=== PATIENT | female | born 1960 | race Caucasian/White ===

== ENCOUNTER → 2017-08-09 | Outpatient (CLI) | payer MEDICARE ==
--- NOTE | 2017-08-09 12:53 | US ---
EXAMINATION TYPE: US liver DATE OF EXAM: 08/09/2017 COMPARISON: NONE CLINICAL HISTORY: R94.5 increased liver function. Fatigue EXAM MEASUREMENTS: Liver Length: 14.1 cm Gallbladder Wall: 0.2 cm CBD: 0.2 cm Right Kidney: 10.5 x 4.5 x 4.4 cm Pancreas: wnl, partially obstructed by bowel gas. Liver: wnl, partially obstructed by bowel gas. Gallbladder: wnl Evidence for sonographic Nance's sign: no CBD: wnl Right Kidney: wnl IMPRESSION: 1. Although lateral hepatic echotexture is partially obscured by bowel gas visualized portions [place] in normal echotexture. 2. No sonographic evidence of cholelithiasis or acute cholecystitis.
== END | disposition home or self-care (01) ==
LOC: RADUSWWP 10:55
DX: R94.5 Abnormal results of liver function studies (principal)
CPT/HCPCS: 76705

== ENCOUNTER → 2017-08-09 | Outpatient (CLI) | payer MEDICARE ==
[2017-08-09 12:00] LABS: Albumin 4.3 g/dL (3.5-5.0); Bilirubin, Delta 0.2 mg/dL (0.0-0.2); Bilirubin,Unconjugated 0.1 mg/dL (0.0-1.1); Total Bilirubin 0.3 mg/dL (0.2-1.3); Total Protein 7.3 g/dL (6.3-8.2)
[2017-08-09 16:20] LABS: Protein, Total 7.1 g/dL (6.2-8.2)
[2017-08-09 16:50] LABS: Hepatitis A Antibody IgM Non-Reactive (Non-Reactive); Hepatitis B Core IgM Non-Reactive (Non-Reactive)
[2017-08-10 11:40] LABS: Ceruloplasmin 31.9 mg/dL (20.0-60.0)
[2017-08-13 14:18] LABS: Albumin 4.35 g/dL (3.80-4.90); Gamma Globulin 1.12 g/dL (0.70-1.50)
== END | disposition home or self-care (01) ==
LOC: LABWHC1 11:17
PROVIDERS: ATTEND Physician Assistant
DX: R94.5 Abnormal results of liver function studies (principal)
CPT/HCPCS: 36415; 76705; 80074; 80076; 82103; 82390; 83516; 84165; 86038

== ENCOUNTER 2017-08-29 10:25 | Day surgery (SDC) | payer MEDICARE ==
[2017-08-26 15:38] VITALS: BMI 27.3
[~2017-08-29 10:25] MED LIST: LACTATED RINGERS 1,000 ML IV ONE
[2017-08-29 11:00] VITALS: TEMP 98
[2017-08-29] MEDS ORDERED: LIDOCAINE 1% 20 ML VIAL (10MG/ML) FOR IV START INTRADERMA ONE (11:02)
[2017-08-29] MEDS ORDERED: LIDOCAINE 1% INJ 10MG/ML (20 ML MDV) ONE (12:12)
[2017-08-29] MEDS ORDERED: PROPOFOL 10 MG/ML 20 ML VIAL IV ONE (12:12)
--- NOTE | 2017-08-29 12:45 | P.PCN ---
Date of Procedure: 08/29/17 Procedure(s) Performed: Procedure: Total colonoscopy. Preoperative diagnosis: Intermittent rectal bleeding. Postoperative diagnosis: 1. Mild sigmoid diverticulosis with no evidence of acute diverticulitis, strictures, polyps or cancer. 2. Low-grade internal hemorrhoids without bleeding at the time of this exam. Preparation: HalfLytely prep. Sedation: Was provided by anesthesia. Brief clinical history: The patient is a 56-year-old female who is scheduled for this evaluation because of intermittent rectal bleeding. No family history of colon cancer. She has no abdominal complaints or anemia. She had a colonoscopy around 5 years ago which was normal. Procedure: With the patient on her left lateral decubitus position and after informed consent and adequate sedation, the perianal area was inspected and it did not show any fissures or fistulas. There were no masses felt on digital rectal examination. The Olympus CFQ 160L video colonoscope was then inserted in the rectum in the usual fashion and advanced to the cecum. The preparation was good. The mucosa appeared healthy. Few diverticular orifices were seen scattered in the sigmoid with no evidence of acute diverticulitis or strictures. No polyps or tumors were seen. I retroflexed the endoscope in the rectum before the endoscope was withdrawn. Low-grade internal hemorrhoids were noted with no evidence of bleeding. The patient tolerated the procedure well. Plan: The patient was reassured. Discussed dietary measures. She will follow- up with you as planned and I recommended repeat exam in 10 years.
[2017-08-29 12:57] VITALS: BP 130/78; PULSE 65; RESP 16
== END 2017-08-29 13:39 | disposition home or self-care (01) ==
LOC: ORWHC2ENDO 10:25
DX: K57.30 Diverticulosis of large intestine without perforation or abscess without bleeding (principal); K64.8 Other hemorrhoids; I10 Essential (primary) hypertension; Z79.899 Other long term (current) drug therapy
CPT/HCPCS: 45378; J2001; J2704

== ENCOUNTER 2017-12-10 12:15 | Emergency (ER) | payer MEDICARE ==
[2017-12-10 12:21] VITALS: BP 132/64; PULSE 72; RESP 18; TEMP 97.5
--- NOTE | 2017-12-10 12:39 | ED ---
Fall HPI - General Chief Complaint: Fall Stated Complaint: left arm injury back injury fall apx 5 ft Time Seen by Provider: 12/10/17 12:28 Source: patient, RN notes reviewed Mode of arrival: ambulatory Limitations: no limitations - History of Present Illness Initial Comments: This is a 57-year-old female who presents to the emergency department with chief complaint of left arm injury. Patient states approximately one hour prior to arrival she slipped on her deck stairs and fell off to the side. She states that she landed on her left forearm onto a piece of metal. She complains of pain just distal to the elbow. States that she does have normal range of motion of the elbow and wrist but that it is very sore, especially when making a fist. Patient states that her right lower back also hurts but she does report a history of chronic back pain and foot drop. She is not concerned about the back pain. Denies any other injury or trauma. Denies recent fevers or chills, chest pain shortness of breath, developing, nausea or vomiting. Denies head or neck pain. - Related Data Home Medications Medication Instructions Recorded Confirmed ALPRAZolam [ALPRAZolam] 1 tab PO DAILY 09/13/14 08/29/17 Allergies Allergy/AdvReac Type Severity Reaction Status Date / Time sulfamethoxazole Allergy Rash/Hives Verified 12/10/17 12:21 [From Bactrim] trimethoprim [From Bactrim] Allergy Rash/Hives Verified 12/10/17 12:21 Review of Systems ROS Statement: Those systems with pertinent positive or pertinent negative responses have been documented in the HPI. ROS Other: All systems not noted in ROS Statement are negative. Past Medical History Past Medical History: Hypertension, Musculoskeletal Disorder Additional Past Medical History / Comment(s): HAS HAD A FEW EPISODES OF BLOOD IN STOOLS. 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 NERVE DAMAGE IN BACK. RT FOOT DROP History of Any Multi-Drug Resistant Organisms: None Reported Past Surgical History: Section Additional Past Surgical History / Comment(s): LAPAROSCOPIES X 3. COLONOSCOPY AT AGE 51 Past Anesthesia/Blood Transfusion Reactions: Postoperative Nausea & Vomiting ( PONV) Past Psychological History: Anxiety Smoking Status: Former smoker Past Alcohol Use History: Occasional Past Drug Use History: None Reported - Past Family History Mother Family Medical History: No Reported History General Exam - General Exam Comments Initial Comments: General: Awake and alert, well-developed; in no apparent distress. HEENT: Head atraumatic, normocephalic. Pupils are equal, round and reactive to light. Extraocular movements intact. Oropharynx moist without erythema or exudate. Neck: Supple. Normal ROM. Cardiovascular: Regular rate and rhythm. No murmurs, rubs or gallops. Chest symmetrical. Respiratory: Lungs clear to auscultation bilaterally. No wheezes, rales or rhonchi. Normal respiratory effort with no use of accessory muscles. Musculoskeletal: Normal range of motion of the left upper extremity. There is soft tissue swelling and superficial abrasion dorsal aspect of left forearm just distal to the elbow. No obvious gross deformities. Sensation is intact. Radial pulses are 2+ equal and palpable bilaterally. Skin: [place], warm and dry without rashes. Neurological: Alert and oriented x3. CN II-XII grossly intact. Speech is fluent and answers are appropriate. No focal neuro deficits. Psychiatric: Normal mood and affect. No overt signs of depression or anxiety noted. Limitations: no limitations Back exam: Present: normal inspection, full ROM, tenderness (mild tenderness right lumbar region. no bony point tenderness). Absent: paraspinal tenderness, vertebral tenderness Course Vital Signs 12/10/17 12:18 Temperature 97.5 F L Pulse Rate 72 Respiratory 18 Rate Blood Pressure 132/64 O2 Sat by Pulse 100 Oximetry Medical Decision Making - Medical Decision Making This is a 57-year-old female who presents to the emergency department with chief complaint of left arm injury. Patient slipped off of her deck stairs and landed onto her left forearm. There is soft tissue swelling, bruising and superficial abrasion to the proximal dorsal left forearm. Patient does have normal range of motion and is neurovascularly intact. X-ray left forearm revealed no acute abnormalities. Patient suffering from contusion to the left forearm. Recommend rest, ice and ibuprofen or Tylenol as needed. Patient is in agreement with plan and voices understanding. She is in no acute distress and will be discharged home at this time. All questions answered. - Radiology Data Radiology results: report reviewed, image reviewed X-ray left forearm findings: 2 views of the forearm demonstrate that the osseous structures appear to be intact and the joint spaces appeared to be preserved. There is no acute fracture or dislocation. Impression: No acute fracture or dislocation. Disposition Clinical Impression: Contusion of left forearm Disposition: HOME SELF-CARE Condition: Good Instructions: Contusion in Adults (ED) Additional Instructions: Please rest, ice and take ibuprofen or Tylenol as needed. Please follow up with primary care provider within 1-2 days. Return to emergency department if symptoms should worsen or any concerns arise. Is patient prescribed a controlled substance at d/c from ED?: No Referrals: Jessica Gusman DO [Primary Care Provider] - 1-2 days Time of Disposition: 13:14
--- NOTE | 2017-12-10 13:11 | XR ---
EXAMINATION TYPE: XR forearm LT DATE OF EXAM: 12/10/2017 COMPARISON: NONE HISTORY: Pain Two views of the forearm demonstrate that the osseous structures appear to be intact and the joint sp aces appear to be preserved. There is no acute fracture or dislocation. IMPRESSION: 1. No acute fracture or dislocation
== END 2017-12-10 13:29 | disposition home or self-care (01) ==
LOC: EC 12:15
DX: S50.12XA Contusion of left forearm, initial encounter (principal); M54.5 Low back pain; G89.29 Other chronic pain; F41.9 Anxiety disorder, unspecified; Z87.891 Personal history of nicotine dependence; Z79.899 Other long term (current) drug therapy; Z88.2 Allergy status to sulfonamides; W10.8XXA Fall (on) (from) other stairs and steps, initial encounter; Y92.89 Other specified places as the place of occurrence of the external cause
CPT/HCPCS: 99283

== ENCOUNTER → 2018-12-11 | Outpatient (CLI) | payer MEDICARE ==
--- NOTE | 2018-12-22 09:07 | EM ---
EVENT MONITOR AGE: 58 SEX: Female INDICATIONS: The patient was monitored between the and the December,. The baseline rhythm is sinus mechanism with frequent single PVCs with symptoms of palpitation and skipped beats. There was no evidence of ventricular tachycardia or malignant arrhythmia. No pauses were noted. JOHNY / ИВАН: [id number] /
== END | disposition home or self-care (01) ==
LOC: RADECHMAIN 11:48
PROVIDERS: ATTEND Internal Medicine Cardiovascular Disease
DX: I49.3 Ventricular premature depolarization (principal)
CPT/HCPCS: 93270